=== PATIENT | female | born 1980 | race African-American/Black ===

== ENCOUNTER 2017-03-04 21:38 | Emergency (ER) | payer BC ==
[2017-03-04 23:23] LABS: ABSOLUTE LYMPHOCYTES (AUTO) 2.3 10^3/uL (0.5-4.7); ABSOLUTE MONOCYTES (AUTO) 1.7 10^3/uL (0.1-1.4); ABSOLUTE NEUT (AUTO) 11.7 10^3/uL (1.7-8.2); BASOPHILS % (AUTO) 0.2 % (0-2); EOSINOPHILS % (AUTO) 0.1 % (0-6); HEMATOCRIT 37.8 % (36.0-47.0); HEMOGLOBIN 12.7 g/dL (12.0-15.5); HGB HCT DIFFERENCE 0.3; LYMPHOCYTES % (AUTO) 14.4 % (13-45); MEAN CORPUSCULAR HGB CONC 33.6 g/dL (32.0-36.0); MEAN CORPUSCULAR VOLUME 83 fl (80-97); MONOCYTES % (AUTO) 10.6 % (3-13); RED BLOOD COUNT 4.54 10^6/uL (3.72-5.28); RED CELL DISTRIBUTION WIDTH 14.7 % (11.5-14.0); SEGMENTED NEUTROPHILS % (AUTO) 74.7 % (42-78); WHITE BLOOD COUNT 15.6 10^3/uL (4.0-10.5)
[2017-03-04 23:26] LABS: ALANINE AMINOTRANSFERASE 38 U/L (9-52); ALBUMIN 4.5 g/dL (3.5-5.0); ALKALINE PHOSPHATASE 80 U/L (38-126); ANION GAP 13 (5-19); ASPARTATE AMINO TRANSFERASE 20 U/L (14-36); BILIRUBIN,DIRECT 0.4 mg/dL (0.0-0.4); BILIRUBIN,TOTAL 0.4 mg/dL (0.2-1.3); BLOOD UREA NITROGEN 11 mg/dL (7-20); CALCIUM 9.4 mg/dL (8.4-10.2); CARBON DIOXIDE 23 mmol/L (22-30); CHLORIDE 105 mmol/L (98-107); CREATININE RESULT 0.75 mg/dL (0.52-1.25); GLUCOSE 90 mg/dL (75-110); LIPASE 127.5 U/L (23-300); SODIUM 140.5 mmol/L (137-145); TOTAL PROTEIN 7.2 g/dL (6.3-8.2)
[2017-03-04 23:43] LABS: APPEARANCE,URINE SLIGHTLY-CLOUDY; BILIRUBIN,URINE NEGATIVE (NEGATIVE); GLUCOSE, URINE NEGATIVE (NEGATIVE); KETONES,URINE NEGATIVE (NEGATIVE); LEUKOCYTE ESTERASE,URINE LARGE (NEGATIVE); NITRITE,URINE NEGATIVE (NEGATIVE); PROTEIN,URINE NEGATIVE (NEGATIVE); URINE SPECIFIC GRAVITY 1.002; UROBILINOGEN,URINE NEGATIVE mg/dL (<2.0)
[2017-03-05 00:01] LABS: BACTERIA,URINE TRACE /HPF
--- NOTE | 2017-03-05 00:30 | ER Document Report ---
ED GI/ - General Chief Complaint: Abdominal Pain Stated Complaint: ABDOMINAL PAIN Time Seen by Provider: 03/05/17 00:29 Notes: The patient is a 36-year-old female, past medical history tubal ligation, migraines, presents with 1 day of right lower abdominal pain radiating into her right flank. She has never had this before. She also had a right forearm injury and she was picking glass out of it earlier today, but she is unsure if she removed all the glass. She denies numbness, tingling, nausea, vomiting, headache, back pain or fevers. TRAVEL OUTSIDE OF THE [place] IN LAST 30 DAYS: No - Related Data Allergies/Adverse Reactions: acetaminophen [From Percocet] Allergy (Verified 03/04/17 21:46) NSAIDS (Non-Steroidal Anti-Inflamma Allergy (Verified 03/04/17 21:46) oxycodone [From Percocet] Allergy (Verified 03/04/17 21:46) Penicillins Allergy (Verified 03/04/17 21:46) Past Medical History - General Information source: Patient - Social History Smoking Status: Unknown if Ever Smoked Family History: Reviewed & Not Pertinent Review of Systems - Review of Systems Notes: REVIEW OF SYSTEMS: CONSTITUTIONAL: -fevers, -chills EENT: -eye pain, -difficulty swallowing, -nasal congestion CARDIOVASCULAR:-chest pain, -syncope. RESPIRATORY: -cough, -SOB GASTROINTESTINAL: +abdominal pain, - nausea, -vomiting, +diarrhea GENITOURINARY: +dysuria, -hematuria MUSCULOSKELETAL: +right flank pain, -neck pain SKIN: -rash or skin lesions. HEMATOLOGIC: -easy bruising or bleeding. LYMPHATIC: -swollen, enlarged glands. NEUROLOGICAL: -altered mental status or loss of consciousness, -headache, - neurologic symptoms PSYCHIATRIC: -anxiety, -depression. ALL OTHER SYSTEMS REVIEWED AND NEGATIVE. Physical Exam - Vital signs Vitals: Temp Pulse Resp BP Pulse Ox 98.5 F 89 18 154/81 H 100 03/04/17 21:49 03/04/17 21:49 03/04/17 21:49 03/04/17 21:49 03/04/17 21:49 - Notes Notes: PHYSICAL EXAMINATION: GENERAL: Well-appearing, well-nourished and in no acute distress. HEAD: Atraumatic, normocephalic. EYES: Pupils equal round and reactive to light, extraocular movements intact, sclera anicteric, conjunctiva are normal. ENT: nares patent, oropharynx clear without exudates. Moist mucous membranes. NECK: Normal range of motion, supple without lymphadenopathy LUNGS: Breath sounds clear to auscultation bilaterally and equal. No wheezes rales or rhonchi. HEART: Regular rate and rhythm without murmurs ABDOMEN: Soft, mild RLQ and suprapubic tenderness, normoactive bowel sounds. No guarding, no rebound. No masses appreciated. EXTREMITIES: 0.5 cm abrasion over right posterior forearm without any glass palpated. Normal range of motion, no pitting or edema. No cyanosis. BACK: Right CVA tenderness. NEUROLOGICAL: Cranial nerves grossly intact. Normal speech, normal gait. Normal sensory and motor exams. PSYCH: Normal mood, normal affect. SKIN: Warm, Dry, normal turgor, no rashes or lesions noted. Course - Re-evaluation Re-evalutation: Patient appears well. She has evidence of pyelonephritis on urinalysis and CT scan with a leukocytosis. We will began Keflex 3 times a day to help with her symptoms. She said that penicillin makes her nauseous, but she is not actually allergic. Also told her that her right tubal ligation clip may have migrated into her left pelvis and to let her [employer] know. Her CAT scan also shows a possible L4 compression fracture, but the patient is having no tenderness or pain. Patient is safe for discharge with outpatient treatment for her pyelonephritis and very strict return precautions. - Vital Signs Vital signs: Temp Pulse Resp BP Pulse Ox 98.5 F 89 18 154/81 H 100 03/04/17 21:49 03/04/17 21:49 03/04/17 21:49 03/04/17 21:49 03/04/17 21:49 - Laboratory Result Diagrams: 03/04/17 22:30 03/04/17 22:30 Laboratory results interpreted by me: 03/04/17 03/04/17 22:30 22:30 WBC 15.6 H RDW 14.7 H Absolute Neutrophils 11.7 H Absolute Monocytes 1.7 H Urine Blood MODERATE H Ur Leukocyte Esterase LARGE H - Diagnostic Test Radiology reviewed: Image reviewed, Reports reviewed Radiology results interpreted by me: CT A/P: Right renal duplicated collecting system. Mild right periureteric soft tissue stranding, may be seen with acute infection/inflammation. Please correlate with laboratory values/analysis. Tubal ligation clip at the left adnexa. No tubal ligation clip at the right adnexa, with a migrated ligation clip in the left lower quadrant. Mild compression deformity with anterior wedging of L4 vertebral body, of indeterminate age. Please correlate with point tenderness to exclude acute injury. Right Forearm x-ray: NAD Discharge - Discharge Clinical Impression: Pyelonephritis Condition: Stable Disposition: HOME, SELF-CARE Additional Instructions: PYELONEPHRITIS: Your evaluation shows evidence of pyelonephritis. This is an infection in the kidney. Typical symptoms are fever, pain in the flank, pain on urination, and frequent urination. Many cases of pyelonephritis can be treated at home. Hospital care may be necessary for patients who are very ill, or elderly or . Pyelonephritis is treated with antibiotics. Be sure to take all the medication as prescribed. Drink plenty of liquids (about three quarts per day) . You may take acetaminophen for fever. You should feel significantly improved within two days. You should have a recheck of your urine in about one week to insure that the infection is gone. Return for a re-examination if your symptoms worsen in any way -- such as high fever, shaking chills, severe weakness or dizziness, severe pain, or inability to pass your urine. ANTIBIOTIC THERAPY: You have been given an antibiotic prescription. It's important that you take all the medication, unless instructed otherwise by your physician. Failure to complete the entire course can result in relapse of your condition. Common side effects of antibiotics include nausea, intestinal cramping, or diarrhea. Women may develop vaginal yeast infections, and babies can get yeast (thrush) in the mouth following the use of antibiotics. Contact your physician if you develop significant side effects from this medication. Allergy to this antibiotic can result in hives, wheezing, faintness, or itching. If symptoms of allergy occur, stop the medication and call the doctor. CEPHALEXIN: The antibiotic you've been prescribed is a member of the cephalosporin class. This type of antibiotic covers a wide variety of infections, including those of the skin, lungs, and urinary tract. It's useful for staph infections. This antibiotic is slightly similar to the penicillin family. In rare cases , a person who is allergic to penicillin will also be allergic to this medication. If you have had a severe allergic reaction to penicillin, and have not taken this antibiotic since that time, notify your doctor. Antibiotics which cover many germs ("broad spectrum" antibiotics) are more likely to cause diarrhea or "yeast" infections. Women prone to vaginal yeast problems may suffer an attack after taking this antibiotic. In infants, oral thrush (white spots "stuck" on the cheek) or yeast diaper rash may result. See your doctor if these problems occur. Call at once if you develop itching, hives , shortness of breath, or lightheadedness. USE OF ACETAMINOPHEN (Tylenol): Acetaminophen may be taken for pain relief or fever control. It's much safer than aspirin, offering a wider range of "safe" dosages. It is safe during . Some brand names are Tylenol, Panadol, Datril, Anacin 3, Tempra, and Liquiprin. Acetaminophen can be repeated every four hours. The following are maximum recommended dosages: >89 pounds or adults 650 mg to 900 mg Acetaminophen can be repeated every four hours. Maximum dose not to exceed 4000 mg a day. FOLLOW-UP CARE: If you have been referred to a physician for follow-up care, call the physician s office for an appointment as you were instructed or within the next two days. If you experience worsening or a significant change in your symptoms, notify the physician immediately or return to the Emergency Department at any time for re-evaluation. Prescriptions: Cephalexin Monohydrate [Keflex 500 mg Capsule] 500 mg PO TID 10 Days capsule Forms: Elevated Blood Pressure Referrals: LISANDRA ENG MD [Primary Care Provider] - Follow up as needed
--- NOTE | 2017-03-05 01:54 | RADIOLOGY REPORT (SQ) ---
EXAM DESCRIPTION: CT ABD/PELVIS WITH IV ONLY COMPLETED DATE/TIME: 03/05/2017 1:27 am REASON FOR STUDY: RLQ abdominal pain COMPARISON: None. TECHNIQUE: CT scan of the abdomen and pelvis performed using helical scanning technique with dynamic intravenous contrast injection. No oral contrast. Images reviewed with lung, soft tissue, and bone windows. Reconstructed coronal and sagittal MPR images reviewed. Delayed images for evaluation of the urinary system also acquired. All images stored on PACS. All CT scanners at this facility use dose modulation, iterative reconstruction, and/or weight based d osing when appropriate to reduce radiation dose to as low as reasonably achievable (ALARA). [facility]: Dose Right [facility]: CareDose [facility]: Dose Right [facility]: Teradose 4D [facility]: IXcellerate CONTRAST TYPE AND DOSE: 100 mL Isovue 370- low osmolar. RENAL FUNCTION: Creatinine 0.75 RADIATION DOSE: . LIMITATIONS: None. FINDINGS: LOWER CHEST: No consolidation or pleural effusion. LIVER: Normal size. No masses. No dilated ducts. SPLEEN: Normal size. PANCREAS: No significant calcifications. No adjacent inflammation or peripancreatic fluid collections . Pancreatic duct not dilated. GALLBLADDER: Present. ADRENAL GLANDS: No significant masses or asymmetry. RIGHT KIDNEY AND URETER: Duplicated renal collecting system with 2 ureters. There is mild perienter ic soft tissue stranding. No hydronephrosis or hydroureter. LEFT KIDNEY AND URETER: 3.5 cm cyst at the superior pole of the left kidney. No hydronephrosis or hy droureter. AORTA AND VESSELS: No abdominal aortic aneurysm. RETROPERITONEUM: No retroperitoneal hemorrhage or masses. BOWEL AND PERITONEAL CAVITY: No dilated bowel loops or inflammatory changes. No free fluid or free ai r. APPENDIX: Normal. PELVIS: The urinary bladder is is partially distended. The uterus is present. A tubal ligation clip is seen at the left adnexa. Another tubal ligation clip is seen in the soft tissues of the left low er quadrant. No tubal ligation clip at the right adnexa. No pelvic mass. No free fluid. ABDOMINAL WALL: No hernias. BONES: Mild degenerative changes in the spine. There is mild compression deformity with anterior wed ging of L4 vertebral body, of indeterminate age. IMPRESSION: Right renal duplicated collecting system. Mild right periureteric soft tissue strandin g, may be seen with acute infection/inflammation. Please correlate with laboratory values/analysis. Tubal ligation clip at the left adnexa. No tubal ligation clip at the right adnexa, with a migrated ligation clip in the left lower quadrant. Mild compression deformity with anterior wedging of L4 vertebral body, of indeterminate age. Please correlate with point tenderness to exclude acute injury. TECHNICAL DOCUMENTATION: JOB ID: [id number] PR-64 Quality ID # [id number]: Final reports with documentation of one or more dose reduction techniques (e.g., Au tomated exposure control, adjustment of the mA and/or kV according to patient size, use of iterative reconstruction technique) 2010 [employer]- All Rights Reserved
--- NOTE | 2017-03-05 01:57 | RADIOLOGY REPORT (SQ) ---
EXAM DESCRIPTION: FOREARM RIGHT COMPLETED DATE/TIME: 03/05/2017 1:35 am REASON FOR STUDY: right forearm injury, possible glass FB COMPARISON: None. NUMBER OF VIEWS: Two views. TECHNIQUE: Two radiographic images acquired of the right forearm, including elbow and wrist in at le ast one projection. LIMITATIONS: None. FINDINGS: MINERALIZATION: Normal. BONES: No acute fracture. SOFT TISSUES: No soft tissue swelling. No radiopaque foreign body. IMPRESSION: No radiographic evidence for acute fracture or radiopaque foreign body. TECHNICAL DOCUMENTATION: JOB ID: [id number] OH-64 2010 [employer] All Rights Reserved
[2017-03-05] MEDS ORDERED: CEPHALEXIN 500 MG CAPSULE PO ONE (02:12)
[2017-03-05 03:16] VITALS: BP 136/85
== END 2017-03-05 02:33 | disposition home or self-care (01) ==
LOC: ER 21:38
DX: N12 Tubulo-interstitial nephritis, not specified as acute or chronic (principal); R10.31 Right lower quadrant pain; S50.811A Abrasion of right forearm, initial encounter; W25.XXXA Contact with sharp glass, initial encounter; Z98.51 Tubal ligation status; Z88.6 Allergy status to analgesic agent; Z88.0 Allergy status to penicillin
CPT/HCPCS: 36415; 74177; 80053; 81001; 81025; 83690; 85025; 99284

== ENCOUNTER 2017-03-08 01:31 | Emergency (ER) | payer BC ==
[2017-03-08 01:37] VITALS: BP 123/71
== END 2017-03-08 01:54 | disposition left against medical advice (07) ==
LOC: ER 01:31
DX: Z53.21 Procedure and treatment not carried out due to patient leaving prior to being seen by health care provider (principal)

== ENCOUNTER 2017-04-23 18:19 | Emergency (ER) | payer BC ==
--- NOTE | 2017-04-23 19:23 | ER Document Report ---
ED Skin Rash/Insect Bite/Abscs - General Mode of Arrival: Ambulatory Information source: Patient TRAVEL OUTSIDE OF THE [place] IN LAST 30 DAYS: No - General Chief Complaint: Skin Problem Stated Complaint: SKIN PROBLEM Time Seen by Provider: 04/23/17 19:05 Notes: Patient is a 36-year-old female who presents to the emergency department today with complaints of cough of a 1 week duration. Patient also mentions multiple areas of her skin having "spots". Patient mentions that the first one she noticed was on her right forearm. Patient states that it looks like there was "a [employer] bag under her skin". Patient also mentions that there was "powder " that came out of the area when the area was expressed. Patient mentions that she has similar spots now on her left forearm and left calf. Patient mentions that she has been "putting a pin in alcohol and she has been sticking it in the spots". (ANNAMARIA GONZALEZ) - Related Data Allergies/Adverse Reactions: acetaminophen [From Percocet] Allergy (Verified 03/08/17 01:32) NSAIDS (Non-Steroidal Anti-Inflamma Allergy (Verified 03/08/17 01:32) oxycodone [From Percocet] Allergy (Verified 03/08/17 01:32) Penicillins Allergy (Verified 03/08/17 01:32) Past Medical History - General Information source: Patient - Social History Smoking Status: Never Smoker Cigarette use (# per day): No Chew tobacco use (# tins/day): No Frequency of alcohol use: Rare Drug Abuse: None Lives with: Family Family History: Reviewed & Not Pertinent Patient has suicidal ideation: No Patient has homicidal ideation: No - Past Medical History Cardiac Medical History: Reports: Hx Hypertension Past Surgical History: Reports: Hx Orthopedic Surgery - ankle, Hx Tubal Ligation Review of Systems - Review of Systems Constitutional: No symptoms reported EENT: No symptoms reported Cardiovascular: No symptoms reported Respiratory: See HPI, Cough Gastrointestinal: No symptoms reported Genitourinary: No symptoms reported Female Genitourinary: No symptoms reported Musculoskeletal: No symptoms reported Skin: No symptoms reported Hematologic/Lymphatic: No symptoms reported Neurological/Psychological: See HPI, Other - "spots" on skin -: Yes All other systems reviewed and negative Physical Exam - Vital signs Vitals: Temp Pulse Resp BP Pulse Ox 98.4 F 100 14 145/94 H 99 01/20/18 18:30 04/23/17 18:30 04/23/17 18:30 04/23/17 18:30 04/23/17 18:30 - Notes Notes: Physical Exam: General: Alert, appears well. HEENT: Normocephalic. Atraumatic. PERRL. Extraocular movements intact. Oropharynx clear. Neck: Supple. Non-tender. Respiratory: No respiratory distress. Clear and equal breath sounds bilaterally. Cardiovascular: Regular rate and rhythm. Abdominal: Normal Inspection. Non-tender. No distension. Normal Bowel Sounds. Back: Non-tender. No deformity or step off. Extremities: Moves all four extremities. Upper extremities: Normal inspection. Normal ROM. Lower extremities: Normal inspection. No edema. Normal ROM. Neurological: Normal cognition. AAOx4. Normal speech. Psychological: Normal affect. Normal Mood. Skin: Eraser sized area of erythema to the left calf, flat, no foreign body, no secondary signs of infection. 2 mm linear abrasion to left forearm no palpable mass or foreign body. (ANNAMARIA GONZALEZ) - Vital Signs Vital signs: Temp Pulse Resp BP Pulse Ox 98.4 F 100 14 145/94 H 99 04/23/17 18:30 04/23/17 18:30 04/23/17 18:30 04/23/17 18:30 04/23/17 18:30 Discharge - Discharge Clinical Impression: Rash and nonspecific skin eruption, Bronchitis Condition: Good Disposition: HOME, SELF-CARE Additional Instructions: Return for any problem or concern. Call to arrange follow-up for evaluation of your rash. Prescriptions: Benzonatate [Tessalon Perles 100 mg Capsule] 100 mg PO Q8HP PRN #15 capsule PRN Reason: For cough Forms: Elevated Blood Pressure Referrals: VIRGINIE JEONG MD [ACTIVE STAFF] - Follow up in 3-5 days Scribe Attestation: 04/23/17 20:18 I personally performed the services described in the documentation, reviewed and edited the documentation which was dictated to the scribe in my presence, and it accurately records my words and actions. (SHARI HADDAD) Scribe Documentation - Scribe Written by Dinorae:: Keo Cabrera, 04/23/[id number] acting as scribe for :: Brenda
--- NOTE | 2017-04-23 20:06 | RADIOLOGY REPORT (SQ) ---
EXAM DESCRIPTION: CHEST PA/LAT COMPLETED DATE/TIME: 04/23/2017 7:24 pm REASON FOR STUDY: Cough COMPARISON: None. EXAM PARAMETERS: NUMBER OF VIEWS: two views TECHNIQUE: Digital Frontal and Lateral radiographic views of the chest acquired. RADIATION DOSE: NA LIMITATIONS: none FINDINGS: LUNGS AND PLEURA: No opacities, masses or pneumothorax. No pleural effusion. MEDIASTINUM AND HILAR STRUCTURES: No masses or contour abnormalities. HEART AND VASCULAR STRUCTURES: Heart normal size. No evidence for failure. BONES: No acute findings. HARDWARE: None in the chest. OTHER: No other significant finding. IMPRESSION: NO SIGNIFICANT RADIOGRAPHIC FINDING IN THE CHEST. TECHNICAL DOCUMENTATION: JOB ID: [id number] [employer]- All Rights Reserved
[2017-04-23 20:31] VITALS: BP 137/86
== END 2017-04-23 20:29 | disposition home or self-care (01) ==
LOC: ER 18:19
DX: R21 Rash and other nonspecific skin eruption (principal); J40 Bronchitis, not specified as acute or chronic; I10 Essential (primary) hypertension; Z88.6 Allergy status to analgesic agent; Z88.0 Allergy status to penicillin
CPT/HCPCS: 71046; 99283

== ENCOUNTER 2017-05-19 00:11 | Emergency (ER) | payer BC, OTHER ==
--- NOTE | 2017-05-19 00:54 | ER Document Report ---
HPI - HPI Patient complains to provider of: skin abnormality Pain Level: 5 Context: Patient is a 36-year-old female that comes emergency department for chief complaint of a wound on her left calf area, she states that she originally thought that she had something under her skin, she was poking the area with a needle that she had dipped in alcohol, she states a scab formed over the area but she picked the scab off see what was underneath and it began draining clear fluid and blood. She states she thinks there is something stuck in her leg. She denies any injury or knowledge of anything going into her leg. She states she also has a area on her left forearm that is a bump that she wants checked out. She has been evaluated previously for this by her primary care and here, she states she had an x-ray of her arm to make sure she did not have a foreign body and there was none. She states her tetanus is up-to-date within 5 years. She denies any daily medications. Fianc at bedside. Past Medical History - General Information source: Patient - Social History Smoking Status: Never Smoker Frequency of alcohol use: None Drug Abuse: None Lives with: Spouse/Significant other Family History: Reviewed & Not Pertinent - Past Medical History Cardiac Medical History: Reports: Hx Hypertension Renal/ Medical History: Denies: Hx Peritoneal Dialysis Past Surgical History: Reports: Hx Orthopedic Surgery - ankle, Hx Tubal Ligation - Immunizations Immunizations up to date: Yes Hx Diphtheria, Pertussis, Tetanus Vaccination: Yes Vertical Provider Document - CONSTITUTIONAL General Appearance: WD/WN, No Apparent Distress - INFECTION CONTROL TRAVEL OUTSIDE OF THE [place] IN LAST 30 DAYS: No - HEENT HEENT: Atraumatic, Normocephalic - NECK Neck: Normal Inspection - RESPIRATORY Respiratory: Breath Sounds Normal, No Respiratory Distress O2 Sat by Pulse Oximetry: 95 - CARDIOVASCULAR Cardiovascular: Regular Rate, Regular Rhythm. negative: Tachycardia - No tachycardia on my exam - GI/ABDOMEN Gastrointestinal: Abdomen Soft, Abdomen Non-Tender - BACK Back: Normal Inspection - MUSCULOSKELETAL/EXTREMETIES Musculoskeletal/Extremeties: MAEW, FROM, Non-Tender - DERM Integumentary: Warm, Dry Notes: There is a small papule on the left forearm with no surrounding erythema, no tenderness, no induration or fluctuance, no vesicles, bulla, or other abnormality noted. This is the area in question on the patient's left forearm. Cannot feel foreign body underneath the skin. Left calf with a proximal half centimeter superficial wound which is irregular, no current bleeding, into the epidermis, minimal surrounding erythema, area with mild excoriations. No purulent discharge, fluctuance, or induration. No streaking away from the area. Normal lower extremity exam otherwise including nontender calf, normal distal neurovascular exam, normal knee exam. Course - Re-evaluation Re-evalutation: Patient becomes very anxious and gets very fixated. Her wound appears to be a self-inflicted wound with very mild surrounding erythema, no foreign body, no purulent drainage or abnormal smell, no induration or fluctuance. Discussed the risks of inserting needles into the skin, discussed how the area on her forearm does not appear to be infected, she has no known foreign body in the area, she requests that I make an incision and dig around, I informed her that the risks of cutting into her forearm with a blade outweigh any benefits of removing something that is not infected in her arm that might have been there for a long time. I cannot feel any foreign body on exam. Attempted to reassure her from her fixation. She denies SI or HI. Patient secondarily tells me that she stepped on a sharp object that was contaminated in a hotel room a few weeks ago, she states that she is scared that she contracted something from it, she states she wants to be tested for hepatitis and HIV. Eventually did agree to this. Will cover with Keflex because of potential mild early cellulitis, discussed recommendations, follow-up , return precautions. Patient and fianc state understanding and agreement. - Vital Signs Vital signs: Temp Pulse Resp BP Pulse Ox 98.1 F 115 H 18 136/86 H 95 05/19/17 00:13 05/19/17 00:13 05/19/17 00:13 05/19/17 00:13 05/19/17 00:13 Discharge - Discharge Clinical Impression: Skin abnormality Leg wound, left Qualifiers: Encounter type: initial encounter Qualified Code(s): S81.802A - Unspecified open wound, left lower leg, initial encounter Condition: Stable Disposition: HOME, SELF-CARE Additional Instructions: Take Keflex antibiotic as prescribed to prevent developing cellulitis at the open wound site on your left calf. Keep area clean, clean gently with soap and water, apply topical antibiotic. Do not insert needles underneath the skin because this can lead to serious infections and abscesses. We have pending laboratory workup with the panels of blood that were drawn tonight, call the lab at [phone] for your results (usually takes several days to a week). Follow-up with primary care for additional evaluation and treatment. Return for any concerning symptoms including spreading redness, fever of 100.4 or greater, discolored discharge, or any other concerning symptoms. Prescriptions: Cephalexin Monohydrate [Keflex 500 mg Capsule] 500 mg PO QID #20 capsule Forms: Return to Work, Treatment of Relative/Child
[2017-05-19 01:16] VITALS: BP 131/80
[2017-05-20 04:38] LABS: HEPATITIS A AB IGM Negative (Negative); HEPATITIS B CORE AB IGM Negative (Negative); HEPATITS B SURFACE ANTIGEN Negative (Negative)
[2017-05-20 08:29] LABS: HEPATITIS C VIRUS ANTIBODY <0.1 s/co ratio (0.0-0.9)
== END 2017-05-19 01:35 | disposition home or self-care (01) ==
LOC: ER 00:11
DX: R23.8 Other skin changes (principal); S80.922A Unspecified superficial injury of left lower leg, initial encounter; X58.XXXA Exposure to other specified factors, initial encounter; I10 Essential (primary) hypertension; F41.9 Anxiety disorder, unspecified; Z20.6 Contact with and (suspected) exposure to human immunodeficiency virus [HIV]; Z20.5 Contact with and (suspected) exposure to viral hepatitis
CPT/HCPCS: 36415; 80074; 86701; 99283

== ENCOUNTER 2018-08-16 23:41 | Emergency (ER) | payer BC, OTHER ==
--- NOTE | 2018-08-17 02:19 | ER Document Report ---
ED General - General Chief Complaint: Urinary Frequency Stated Complaint: URINATION ISSUE Time Seen by Provider: 08/17/18 01:49 Primary Care Provider: KANWAL MALDONADO PA [Primary Care Provider] - Follow up as needed Notes: 37-year-old female with history of migraines presents to the emergency department for 1 day of urinary frequency, back pain, diarrhea, chills, dizziness, weakness, body aches. The symptoms started yesterday. She denies fevers but complained of chills, denies neck stiffness, denies dizziness or lightheadedness, denies sore throat or earache, denies recent illness, denies shortness of breath or chest pain, complains of suprapubic tenderness, denies any other symptoms. TRAVEL OUTSIDE OF THE [place] IN LAST 30 DAYS: No - Related Data Allergies/Adverse Reactions: acetaminophen [From Percocet] Allergy (Verified 03/08/17 01:32) NSAIDS (Non-Steroidal Anti-Inflamma Allergy (Verified 03/08/17 01:32) oxycodone [From Percocet] Allergy (Verified 03/08/17 01:32) Penicillins Allergy (Verified 03/08/17 01:32) Past Medical History - Social History Smoking Status: Unknown if Ever Smoked Family History: Reviewed & Not Pertinent - Past Medical History Cardiac Medical History: Reports: Hx Hypertension Renal/ Medical History: Denies: Hx Peritoneal Dialysis Past Surgical History: Reports: Hx Orthopedic Surgery - ankle, Hx Tubal Ligation - Immunizations Immunizations up to date: Yes Hx Diphtheria, Pertussis, Tetanus Vaccination: Yes Review of Systems - Review of Systems Constitutional: See HPI EENT: No symptoms reported Cardiovascular: See HPI Respiratory: See HPI Gastrointestinal: See HPI Genitourinary: See HPI Female Genitourinary: No symptoms reported Musculoskeletal: See HPI Skin: No symptoms reported Hematologic/Lymphatic: No symptoms reported Neurological/Psychological: See HPI Physical Exam - Vital signs Vitals: Temp Pulse Resp BP Pulse Ox 97.7 F 106 H 16 163/98 H 100 08/16/18 23:43 08/16/18 23:43 08/16/18 23:43 08/16/18 23:43 08/16/18 23:43 - Notes Notes: PHYSICAL EXAMINATION: Reviewed vital signs and charting by RN GENERAL: Well-appearing, well-nourished and in no acute distress. HEAD: Atraumatic, normocephalic. NECK: Normal range of motion, supple without lymphadenopathy. LUNGS: Breath sounds present, equal, and clear to auscultation bilaterally. No wheezes, rales, or rhonchi. HEART: Regular rate and rhythm without murmurs, rubs, or gallops. 2+ peripheral pulses. Normal capillary refill. ABDOMEN: Soft, suprapubic tenderness, nondistended. Normoactive bowel sounds. No guarding, no rebound. No masses appreciated. BACK: Mild right CVAT PELVC: Deferred. EXTREMITIES: Normal range of motion, no pitting or edema. No cyanosis. PSYCH: Normal mood, normal affect. No suicidal thoughts/ideations. No homocidal thoughts/ideations. No hallucinations. SKIN: Warm, dry, normal turgor, no rashes or lesions noted. Course - Re-evaluation Re-evalutation: 08/17/18 02:18 Does not appear toxic. Urinalysis pending. Based on symptomology and physical exam I strongly suspect a urinary tract infection. At this time I do not feel any additional lab work is necessary. 08/17/18 03:14 Urinalysis did not show any evidence of a UTI. I am sending the urine for culture. Patient's vital signs are all within normal limits and patient is afebrile. Unclear why patient is having the symptoms. 08/17/18 03:29 Discussed with patient the option of a 3-day course of Bactrim and she opted to take the antibiotics. I gave her a dose of Bactrim here and sent her home with Bactrim DS twice daily for 3 days. She is safe and stable to discharge home. She is given strict return precautions. - Vital Signs Vital signs: Temp Pulse Resp BP Pulse Ox 97.7 F 106 H 16 163/98 H 100 08/16/18 23:43 08/16/18 23:43 08/16/18 23:43 08/16/18 23:43 08/16/18 23:43 Discharge - Discharge Clinical Impression: Urinary frequency Back pain Qualifiers: Back pain location: low back pain Chronicity: unspecified Back pain laterality: bilateral Sciatica presence: without sciatica Qualified Code(s): M54.5 - Low back pain Condition: Good Disposition: HOME, SELF-CARE Additional Instructions: You were seen in the emergency department this morning for her urinary symptoms consistent with a UTI but your urine. I have sent the urine off for culture. Like we talked about, there is some literature that shows that urinalysis can be unreliable and it is okay and reasonable to treat based off of symptoms. Thus, we are going to give you a 3-day course of Bactrim that you will take 2 times per day. If you develop high fever, worsening flank or back pain, worsening urinary symptoms, severe abdominal pain, intractable nausea or vomiting, bloody vomiting or bloody diarrhea, please immediately return to the emergency department. If your urine culture is positive you will receive a phone call and if necessary antibiotics may or may not be adjusted. Please follow-up with your primary care doctor as needed. Prescriptions: Sulfamethoxazole/Trimethoprim [Bactrim Ds Tablet] 1 each PO BID #6 tablet Referrals: KANWAL MALDONADO PA [Primary Care Provider] - Follow up as needed
[2018-08-17 02:30] LABS: APPEARANCE,URINE CLEAR; BILIRUBIN,URINE NEGATIVE (NEGATIVE); COLOR,URINE COLORLESS; GLUCOSE, URINE NEGATIVE (NEGATIVE); KETONES,URINE NEGATIVE (NEGATIVE); LEUKOCYTE ESTERASE,URINE NEGATIVE (NEGATIVE); NITRITE,URINE NEGATIVE (NEGATIVE); PROTEIN,URINE NEGATIVE (NEGATIVE); URINE SPECIFIC GRAVITY 1.002; UROBILINOGEN,URINE NEGATIVE mg/dL (<2.0)
[2018-08-17] MEDS ORDERED: SULFAMETHOXAZOLE/TRIMETHOPRIM 800-160 MG TABLET PO ONE (03:25)
[2018-08-17 03:43] VITALS: BP 133/83
== END 2018-08-17 03:43 | disposition home or self-care (01) ==
LOC: ER 23:41
DX: R35.0 Frequency of micturition (principal); M54.5 Low back pain; M54.9 Dorsalgia, unspecified; R19.7 Diarrhea, unspecified; R42 Dizziness and giddiness; R53.1 Weakness; M79.10 Myalgia, unspecified site; R68.83 Chills (without fever); I10 Essential (primary) hypertension
CPT/HCPCS: 81001; 81025; 87086; 99283